=== PATIENT | female | born 1980 | race Hispanic/Latino ===

== ENCOUNTER 2019-03-12 07:46 | Emergency (ER) | payer SELFPAY ==
[2019-03-12 08:25] LABS: #Eosinphils 0.3 thou/uL (0.0-0.7); #Lymphocytes 2.5 thou/uL (1.20-3.40); #Monocytes 0.6 thou/uL (0.11-0.59); #Neutrophils 3.3 thou/uL (1.40-6.50); %Basophils 0.5 % (0.0-1.0); %Eosinophils 4.1 % (0.0-10.0); %Lymphocytes 37.6 % (21.0-51.0); %Monocytes 9.3 % (0.0-10.0); %Neutrophils 48.5 % (42.0-75.0); Hemoglobin 13.7 g/dL (12.0-16.0); Mean Corpuscular Volume 88.1 fL (78.0-98.0); Mean Platelet Volume 7.2 fL (7.4-10.4); Platelet Count 350 thou/uL (130-400); RBC Distribution Width 11.9 % (11.5-14.5); Red Blood Cell (RBC) Count 4.57 mill/uL (4.20-5.40); White Blood Cell (WBC) Count 6.7 thou/uL (4.8-10.8)
[2019-03-12] MEDS ORDERED: Morphine 4 MG/ML VIAL ONE (08:27)
[2019-03-12] MEDS ORDERED: Ondansetron PF 4 MG/2 ML Vial ONE (08:27)
[2019-03-12 08:54] LABS: ALT (SGPT) 58 U/L (8-55); AST (SGOT) 33 U/L (5-34); Albumin 4.1 g/dL (3.5-5.0); Alkaline Phosphatase 74 U/L (40-110); Anion Gap 11 mmol/L (10-20); BUN (Urea Nitrogen) 12 mg/dL (7.0-18.7); Bilirubin, Total 0.6 mg/dL (0.2-1.2); Calc. Creatinine Clearance 0 mL/min (70-130); Carbon Dioxide 23 mmol/L (22-29); Chloride 106 mmol/L (98-107); Estimated GFR-MDRD 76; Globulin 3.4 g/dL (2.4-3.5); Glucose 106 mg/dL (70-105); Lipase 29 U/L (8-78); Potassium 3.5 mmol/L (3.5-5.1); Protein, Total 7.5 g/dL (6.0-8.3); Sodium 136 mmol/L (136-145)
[2019-03-12 10:04] LABS: Bilirubin Negative (Negative); Blood, Urine Negative (Negative); Clarity Clear (Clear); Glucose, Urine (Dipstick) Normal (Negative); Leukocyte Negative Leu/uL (Negative); Nitrite Negative (Negative); Protein, Urine (Dipstick) Negative (Neg-Trace); Urobilinogen Normal mg/dL (Less than 2)
[2019-03-12 10:06] LABS: Pregnancy Test - Urine (BHCG) POSITIVE (Negative); Pregu Control Background? CLEAR/WHITE (CLR/WHITE); Pregu Control Bar Appear? YES (CONTROL BAR); Specific Gravity 1.023 (1.002-1.036)
--- NOTE | 2019-03-12 11:01 | ULT ---
Pelvic sonogram transabdominal and transvaginal imaging HISTORY: Pelvic pain. Beta hCG =507. FINDINGS: Urinary bladder is incompletely distended. Uterus has a heterogeneous echotexture and measu res up to 8.9 cm. Endometrium is thickened at 1.5 cm. Minimal free fluid within the cul-de-sac. Right ovary measures up to 1.8 cm with good color and spectral Doppler flow. Immediately superior to the right ovary is a rounded echogenic structure with central hypoechoic comp onent. Increased vascular flow at the periphery of the rounded abnormality. Minimal adjacent free fluid. Left ovary is 2.0 cm. Normal appearance with good color and spectral Doppler flow. IMPRESSION: Thickened endometrium. No intrauterine gestational sac visible. Complex right adnexal structure as detailed above. Some findings that can be seen with an ectopic pre gnancy. Please consider close continued clinical and sonographic follow-up regarding the possibility of an ectopic versus intrauterine gestation.
--- NOTE | 2019-03-14 21:19 | ULT ---
PELVIC ULTRASOUND: 03/14/19 Transabdominal and endovaginal ultrasound of pelvis performed. INDICATIONS: Follow-up from prior ultrasound. Comparison made to ultrasound exam 03/12/19. On today's exam, there is a tiny hypoechoic focus in the endometrium measuring in the 4 mm range whic h could potentially represent a tiny gestational sac. A gestational sac measurement would indicate a 5 week, 1 day gestational age. There is no evidence of yolk sac or pole. This was not noted pre viously. Both ovaries are identified and appear unremarkable today. Color Doppler and spectral analysis demons trates blood flow to both ovaries. The questioned complex area in the right adnexa noted previously is not identified today. Bowel gas o bscures this region on today's exam. IMPRESSION: 1. Question tiny gestational sac in endometrial cavity. This could represent pseudogestational s ac. Ectopic is not excluded and continued close follow-up is recommended. Recommend serial HCG levels. 2. Ovaries are unremarkable today. The questioned complex right adnexal area seen previously is not identified today. Bowel gas obscures the adnexa on today's exam. POS: OFF
== END 2019-03-12 12:21 | disposition home or self-care (01) ==
LOC: ERS 07:46
DX: O99.89 Other specified diseases and conditions complicating pregnancy, childbirth and the puerperium (principal); R10.9 Unspecified abdominal pain; O99.281 Endocrine, nutritional and metabolic diseases complicating pregnancy, first trimester; E78.5 Hyperlipidemia, unspecified; E78.00 Pure hypercholesterolemia, unspecified; O99.341 Other mental disorders complicating pregnancy, first trimester; F32.9 Major depressive disorder, single episode, unspecified
CPT/HCPCS: 76856; 80053; 81003; 81025; 83690; 84702; 85025; 96374; 96375; J2270; J2405

== ENCOUNTER 2019-03-14 16:54 | Emergency (ER) | payer SELFPAY | END 2019-03-14 23:02 | disposition home or self-care (01) | LOC: ERS 16:54 | DX: O99.89 Other specified diseases and conditions complicating pregnancy, childbirth and the puerperium (principal); R10.2 Pelvic and perineal pain; R10.814 Left lower quadrant abdominal tenderness; O99.281 Endocrine, nutritional and metabolic diseases complicating pregnancy, first trimester; E78.5 Hyperlipidemia, unspecified; E78.00 Pure hypercholesterolemia, unspecified; O99.341 Other mental disorders complicating pregnancy, first trimester; F32.9 Major depressive disorder, single episode, unspecified | CPT/HCPCS: 36415; 76856; 84702; 99284 ==

== ENCOUNTER 2019-04-01 02:22 | Emergency (ER) | payer SELFPAY ==
[2019-04-01 03:17] LABS: #Eosinphils 0.3 thou/uL (0.0-0.7); #Lymphocytes 2.7 thou/uL (1.20-3.40); #Monocytes 0.7 thou/uL (0.11-0.59); #Neutrophils 4.8 thou/uL (1.40-6.50); %Basophils 0.2 % (0.0-1.0); %Eosinophils 3.9 % (0.0-10.0); %Lymphocytes 31.4 % (21.0-51.0); %Monocytes 7.7 % (0.0-10.0); %Neutrophils 56.7 % (42.0-75.0); Hemoglobin 13.8 g/dL (12.0-16.0); Mean Corpuscular HGB CONC 34.4 g/dL (32.0-36.0); Mean Corpuscular Hemoglobin 29.8 pg (27.0-31.0); Mean Corpuscular Volume 86.6 fL (78.0-98.0); Mean Platelet Volume 7.2 fL (7.4-10.4); Platelet Count 340 thou/uL (130-400); RBC Distribution Width 11.9 % (11.5-14.5); Red Blood Cell (RBC) Count 4.63 mill/uL (4.20-5.40); White Blood Cell (WBC) Count 8.5 thou/uL (4.8-10.8)
[2019-04-01 03:26] LABS: Bilirubin Negative (Negative); Blood, Urine Negative (Negative); Clarity Clear (Clear); Glucose, Urine (Dipstick) Normal (Negative); Leukocyte Negative Leu/uL (Negative); Nitrite Negative (Negative); Protein, Urine (Dipstick) Negative (Neg-Trace); Urobilinogen Normal mg/dL (Less than 2)
--- NOTE | 2019-04-01 08:29 | ULT ---
PRELIMINARY REPORT/[facility]/AFTER HOURS PROCEDURE ULTRASOUND PELVIS TRANSVAGINAL WITH DOPPLER: FINDINGS; There is a gestational sac within the uterus. Within this there is a pole noted. Cardiac acti vity is noted within this pole measuring 158 bpm. Based on crown-rump length of the pole , this is measuring 7 weeks and 4 days in age which gives a due date of November 14, 2019 [facility] ed on this exam. There are no prior studies for comparison. A yolk sac is noted within the gestatio nal sac. There is no evidence of subchorionic hemorrhage at this time. The ovaries show no ultrasou nd abnormality. IMPRESSION: 1. Single live intrauterine measuring 7 weeks and 4 days by crown-rump length which gives a due date of November 14, 2019 based on this exam. 2. cardiac activity noted with heart rate of 158 bpm. 3. The ovaries show no ultrasound abnormality. ELECTRONICALLY SIGNED BY: Reinaldo Parker MD Apr 01, 2019 7:59:44 AM MICROBIOLOGY ANALYST This report is intended for review by the ordering physician only, in accordance of law. If you recei ve this report in error, please call [facility] at [phone]. FINAL REPORT TRANSVAGINAL PELVIC ULTRASOUND WITH ROBLES-SCALE AND COLOR-FLOW AND SPECTRAL DOPPLER IMAGING: I agree with the preliminary report given by Dr. Reinalod Parker of [facility]. CODE QA POS: [facility]
== END 2019-04-01 05:02 | disposition home or self-care (01) ==
LOC: ERS 02:22
DX: O99.89 Other specified diseases and conditions complicating pregnancy, childbirth and the puerperium (principal); R10.30 Lower abdominal pain, unspecified; E78.5 Hyperlipidemia, unspecified; E78.00 Pure hypercholesterolemia, unspecified; Z3A.01 Less than 8 weeks gestation of pregnancy
CPT/HCPCS: 76856; 81003; 84702; 85025

== ENCOUNTER 2019-04-15 05:36 | Emergency (ER) | payer SELFPAY ==
[2019-04-15 06:13] LABS: Bilirubin Negative (Negative); Blood, Urine Negative (Negative); Clarity Clear (Clear); Glucose, Urine (Dipstick) Normal (Negative); Leukocyte Negative Leu/uL (Negative); Nitrite Negative (Negative); Protein, Urine (Dipstick) Negative (Neg-Trace); Urobilinogen Normal mg/dL (Less than 2)
[2019-04-15 06:13] LABS: #Basophils 0.1 thou/uL (0.0-0.2); #Eosinphils 0.3 thou/uL (0.0-0.7); #Lymphocytes 2.3 thou/uL (1.20-3.40); #Monocytes 0.6 thou/uL (0.11-0.59); #Neutrophils 5.3 thou/uL (1.40-6.50); %Basophils 0.6 % (0.0-1.0); %Eosinophils 3.3 % (0.0-10.0); %Monocytes 7.2 % (0.0-10.0); %Neutrophils 61.9 % (42.0-75.0); Hemoglobin 13.5 g/dL (12.0-16.0); Mean Corpuscular HGB CONC 34.4 g/dL (32.0-36.0); Mean Corpuscular Hemoglobin 30.3 pg (27.0-31.0); Mean Corpuscular Volume 88.3 fL (78.0-98.0); Mean Platelet Volume 7.2 fL (7.4-10.4); Platelet Count 303 thou/uL (130-400); Red Blood Cell (RBC) Count 4.46 mill/uL (4.20-5.40); White Blood Cell (WBC) Count 8.6 thou/uL (4.8-10.8)
[2019-04-15 06:42] LABS: ALT (SGPT) 36 U/L (8-55); AST (SGOT) 21 U/L (5-34); Albumin 3.8 g/dL (3.5-5.0); Alkaline Phosphatase 72 U/L (40-110); Anion Gap 12 mmol/L (10-20); BUN (Urea Nitrogen) 13 mg/dL (7.0-18.7); Bilirubin, Total 0.4 mg/dL (0.2-1.2); Calc. Creatinine Clearance 0 mL/min (70-130); Carbon Dioxide 22 mmol/L (22-29); Chloride 105 mmol/L (98-107); Estimated GFR-MDRD 89; Globulin 3.2 g/dL (2.4-3.5); Glucose 102 mg/dL (70-105); Lipase 27 U/L (8-78); Magnesium 1.9 mg/dL (1.6-2.6); Potassium 3.6 mmol/L (3.5-5.1); Sodium 135 mmol/L (136-145)
--- NOTE | 2019-04-15 09:01 | ULT ---
EXAM: US Pelvic Transvag PROVIDED CLINICAL HISTORY: Abdominal pain COMPARISON: 04/01/2019 FINDINGS: Single live intrauterine gestation is documented, 9 weeks 5 days by crown-rump length. heart ra te of 180 bpm is documented. There is a small amount of perigestational hemorrhage. Right and left ovaries appear sonographically normal. Color Doppler and spectral analysis of the ovar amparo waveforms demonstrates normal flow. There is no evidence for free pelvic fluid. IMPRESSION: Single live intrauterine gestation as above. Small amount of perigestational hemorrhage.
[2019-04-17 00:15] LABS: Chlamydia by PCR Not Detected (NotDetected); GC by PCR Not Detected (NotDetected)
== END 2019-04-15 07:41 | disposition home or self-care (01) ==
LOC: ERS 05:36
DX: O20.8 Other hemorrhage in early pregnancy (principal); O99.281 Endocrine, nutritional and metabolic diseases complicating pregnancy, first trimester; E78.5 Hyperlipidemia, unspecified; E78.00 Pure hypercholesterolemia, unspecified; Z3A.01 Less than 8 weeks gestation of pregnancy
CPT/HCPCS: 76856; 80053; 81003; 83605; 83690; 83735; 84702; 85025; 87086; 87480; 87491; 87510; 87591; 87660; 96360

== ENCOUNTER 2019-06-07 07:32 | Emergency (ER) | payer SELFPAY ==
[2019-06-07 08:34] LABS: #Eosinphils 0.4 thou/uL (0.0-0.7); #Lymphocytes 2.3 thou/uL (1.20-3.40); #Monocytes 0.8 thou/uL (0.11-0.59); %Basophils 0.3 % (0.0-1.0); %Eosinophils 4.7 % (0.0-10.0); %Lymphocytes 27.2 % (21.0-51.0); %Monocytes 9.2 % (0.0-10.0); %Neutrophils 58.7 % (42.0-75.0); Mean Corpuscular HGB CONC 34.1 g/dL (32.0-36.0); Mean Corpuscular Hemoglobin 29.8 pg (27.0-31.0); Mean Corpuscular Volume 87.2 fL (78.0-98.0); Mean Platelet Volume 7.9 fL (7.4-10.4); Platelet Count 306 thou/uL (130-400); RBC Distribution Width 12.6 % (11.5-14.5); Red Blood Cell (RBC) Count 4.01 mill/uL (4.20-5.40); White Blood Cell (WBC) Count 8.5 thou/uL (4.8-10.8)
[2019-06-07 08:45] LABS: ALT (SGPT) 27 U/L (8-55); AST (SGOT) 23 U/L (5-34); Albumin 3.3 g/dL (3.5-5.0); Alkaline Phosphatase 78 U/L (40-110); Anion Gap 12 mmol/L (10-20); BUN (Urea Nitrogen) 9 mg/dL (7.0-18.7); Bilirubin, Total 0.2 mg/dL (0.2-1.2); Calc. Creatinine Clearance 0 mL/min (70-130); Carbon Dioxide 22 mmol/L (22-29); Chloride 107 mmol/L (98-107); Estimated GFR-MDRD Greater than 90; Globulin 2.7 g/dL (2.4-3.5); Glucose 108 mg/dL (70-105); Potassium 3.9 mmol/L (3.5-5.1); Sodium 137 mmol/L (136-145)
[2019-06-07 09:23] LABS: Bacteria/HPF 2+ HPF (None Seen); Bilirubin Negative (Negative); Blood, Urine Negative (Negative); Clarity Clear (Clear); Glucose, Urine (Dipstick) Normal (Negative); Leukocyte 25 Leu/uL (Negative); Nitrite Negative (Negative); Protein, Urine (Dipstick) Negative (Neg-Trace); RBC/HPF 0-3 HPF (0-3); Urobilinogen Normal mg/dL (Less than 2); WBC/HPF 0-3 HPF (0-3)
--- NOTE | 2019-06-07 09:25 | ULT ---
ULTRASOUND OBSTETRICAL COMPLETE: DATE: 06/07/2019 HISTORY: 38-year-old female with low abdominal pain FINDINGS: number: espinal lie: Transverse Maternal cervix: 3.5 cm. Closed. Placenta: Anterior. No placenta previa. Amniotic fluid volume: Subjectively normal heart rate: 150 bpm anatomy not evaluated in detail biometry: Biparietal diameter (BPD): 3.7 cm 17 w 2 d Head circumference (HC): 14.1 cm 17 w 3 d Abdominal circumference (AC): 12.8 cm 18 w 3 d Femur length (FL): 2.5 cm 17 w 4 d Average ultrasound age (AUA): 17 w 5 d Estimated date of delivery (KINGA): 11/10/2019 Estimated weight (EFW): 216 g +/- 32 g IMPRESSION: 1) Live 2nd trimester intrauterine gestation. 2) Estimated gestational age of 17 weeks, 5 days 3) transverse lie. 4) no evidence of complications
--- NOTE | 2019-06-09 14:33 | EKG ---
Test Reason : Blood Pressure : / mmHG Vent. Rate : 065 BPM Atrial Rate : 065 BPM P-R Int : 156 ms QRS Dur : 072 ms QT Int : 376 ms P-R-T Axes : 045 069 033 degrees QTc Int : 391 ms Normal sinus rhythm Normal ECG Confirmed by LEONELA CAIN D.O. ([id number]), editor book RADU MEZA ([id number]) on 06/09/2019 2:32:36 PM Referred By: Confirmed By:LEONELA CAIN D.O.
== END 2019-06-07 10:20 | disposition home or self-care (01) ==
LOC: ERS 07:32
DX: O23.12 Infections of bladder in pregnancy, second trimester (principal); O99.89 Other specified diseases and conditions complicating pregnancy, childbirth and the puerperium; R10.9 Unspecified abdominal pain; O99.282 Endocrine, nutritional and metabolic diseases complicating pregnancy, second trimester; E78.5 Hyperlipidemia, unspecified; E78.00 Pure hypercholesterolemia, unspecified; Z3A.16 16 weeks gestation of pregnancy
CPT/HCPCS: 36415; 76815; 80053; 81003; 81015; 83605; 85025; 86850; 86900; 86901; 93005; 96360

== ENCOUNTER 2019-10-23 02:14 | Inpatient (IN) | payer MEDICAID, OTHER ==
[2019-10-23] MEDS ORDERED: Acetaminophen 500 MG TAB PO PRN (04:28)
[2019-10-23] MEDS ORDERED: Promethazine HCl 25 MG/ML VIAL IM PRN ×2 (04:28→07:18)
[2019-10-23] MEDS ORDERED: Lactated Ringer's 1,000 ML IV SCH (04:28)
[2019-10-23] MEDS ORDERED: hydrALAZINE 20 MG/ML VIAL SLOW IVP PRN ×3 (04:28→08:45)
[2019-10-23] MEDS ORDERED: Ondansetron PF 4 MG/2 ML Vial IVP PRN ×3 (04:28→08:45)
[2019-10-23] MEDS ORDERED: Bicitra 30 ML UDCUP PO SCH (04:30)
[2019-10-23] MEDS ORDERED: CEFAZOLIN 2 GM in Premix Bag 1 BAG IVPB SCH (04:30)
[2019-10-23] MEDS ORDERED: Azithromycin 500 MG in Sodium Chloride 0.9% 250 ML 250 ML IVPB SCH (04:30)
[2019-10-23 04:45] VITALS: BMI 31.8
[2019-10-23 04:47] LABS: Hemoglobin 11.7 g/dL (12.0-16.0)
[2019-10-23 04:54] LABS: ALT (SGPT) 16 U/L (8-55); AST (SGOT) 19 U/L (5-34); Albumin 3.2 g/dL (3.5-5.0); Alkaline Phosphatase 231 U/L (40-110); Anion Gap 15 mmol/L (10-20); BUN (Urea Nitrogen) 19 mg/dL (7.0-18.7); Bilirubin, Total Less than 0.2 mg/dL (0.2-1.2); Calc. Creatinine Clearance 115 mL/min (70-130); Calcium 9.1 mg/dL (7.8-10.44); Carbon Dioxide 18 mmol/L (22-29); Chloride 108 mmol/L (98-107); Estimated GFR-MDRD 82; Glucose 106 mg/dL (70-105); Potassium 4.2 mmol/L (3.5-5.1); Protein, Total 6.2 g/dL (6.0-8.3); Sodium 137 mmol/L (136-145)
[2019-10-23 05:01] LABS: Platelet Count 222 thou/uL (130-400)
[2019-10-23 05:13] LABS: HBSAg Index 0.15 S/CO (0-0.99); HIV (1/2) Antibody/Antigen Non-Reactive (NonReactive); HIV 1/2 INDEX 0.37 S/CO (<1.00); Hep B Surf Ag Non-Reactive S/CO (NonReactive); Syphilis Antibody Nonreactive (Nonreactive); Syphilis Antibody Index 0.05 S/CO (<1.00 Non-Reactive)
[2019-10-23] MEDS ORDERED: MORPHINE 5 MG/10 ML PF VIAL ONE (05:15)
[2019-10-23] MEDS ORDERED: PHENYLEPHRINE-NS 100 MCG/ML 10 ML SYRINGE ONE ×2 (05:15→06:08)
[2019-10-23] MEDS ORDERED: Oxytocin 10 UNITS/ML VIAL ONE ×2 (05:15→06:18)
[2019-10-23 06:17] LABS: Actual Bicarbonate (HCO3v) 24 mEq/L (22-28); Base Excess -4.2 mEq/L (-2.0 to +3.0); pH (Cord, venous) 7.26 (7.32-7.43)
[2019-10-23 06:20] LABS: Actual Bicarbonate (HCO3a) 23.1 mEq/L (22-28); Base Excess (BEa) -6.3 mEq/L (-2.0 to +3.0)
[2019-10-23] MEDS ORDERED: diphenhydrAMINE 50 MG/ML VIAL IVP PRN (07:18)
[2019-10-23] MEDS ORDERED: Naloxone HCl 0.4 mg/ml Vial IVP PRN ×2 (07:18)
[2019-10-23] MEDS ORDERED: Ondansetron HCl/PF 4 MG/2 ML Vial IVP PRN (07:18)
[2019-10-23] MEDS ORDERED: HYDROmorphone 2 MG/ML VIAL SLOW IVP PRN (07:18)
[2019-10-23] MEDS ORDERED: Naloxone HCl 0.4 mg/ml Vial IV PRN (07:18)
[2019-10-23] MEDS ORDERED: Promethazine HCl 25 MG SUPP PR PRN (07:18)
[2019-10-23] MEDS ORDERED: Meperidine HCl/PF 25 MG/ML VIAL SLOW IVP PRN (07:18)
[2019-10-23] MEDS ORDERED: L&D-Morphine 4 MG/ML VIAL SLOW IVP PRN (07:18)
[2019-10-23] MEDS ORDERED: Communication Order-Pharmacy FS SCH (07:30)
[2019-10-23] MEDS ORDERED: Ketorolac Tromethamine 30 MG/ML VIAL IVP SCH (07:30)
[2019-10-23] MEDS ORDERED: NS / Oxytocin 40 units/1000ml 1,000 ML ONE (07:40)
[2019-10-23] MEDS ORDERED: Ketorolac Tromethamine 30 MG/ML VIAL ONE (07:43)
[2019-10-23] MEDS ORDERED: Milk Of Magnesia 30 ML UDCUP PO PRN (08:45)
[2019-10-23] MEDS ORDERED: NS / Oxytocin 40 units/1000ml 1,000 ML IV SCH (08:45)
[2019-10-23] MEDS ORDERED: Lanolin Ointment 7 GM TUBE TOP PRN (08:45)
[2019-10-23] MEDS ORDERED: Adacel (T-DAP) 0.5 ML SYRINGE IM ONE (08:45)
[2019-10-23] MEDS: Docusate 100 MG CAP PO SCH ×2 (10:05→21:36)
[2019-10-23] MEDS: Prenatal Vitamin 1 TAB PO SCH (10:06)
[2019-10-23] MEDS: Polyethylene Glycol 3350 17 GM Packet PO SCH (10:06)
[2019-10-23 12:28] LABS: SARS-CoV-2 MS2 Positive; SARS-CoV-2 N Gene Negative; SARS-CoV-2 S Gene Negative; SARS-CoV-2 by NAA Not Detected (NotDetected); SARS-CoV-2 orf1ab Negative
--- NOTE | 2019-10-23 12:40 | PDOC.PP ---
Post Progress Note Post Day #: 0 Subjective: Pt resting comfortably. Feels tired and having some dizziness. No pain at this time. Has tried once. PO intake tolerated: yes Ambulation: no Vital Signs (12 hours) Temp Pulse Resp BP Pulse Ox 10/23/19 11:15 97.6 F 62 18 125/60 96 10/23/19 10:09 68 18 98/54 L 97 10/23/19 09:05 98.1 F 65 18 123/61 97 Weight Weight 73.936 kg - Physical Examination General: NAD Cardiovascular: RRR Respiratory: clear to auscultation bilaterally, non-labored breathing Abdominal: appropriately TTP Deviation from normal: bandages located across lower abdomen, no erythema, edema or exudate noted Deviation from normal: was sleeping off and on throughout exam Result Diagrams: 10/23/19 03:30 10/23/19 03:30 Additional Labs: Post Labs Blood Type O POSITIVE 10/23/19 03:30 Hep Bs Antigen Non-Reactive S/CO (NonReactive) 10/23/19 03:30 - Assessment/Plan sIUP, delivered. POD#0 -meeting milestones -will order CBC due to sx of dizziness and weakness - -urine in [place] was clear, no blood
[2019-10-23 13:26] LABS: Platelet Count 183 thou/uL (130-400)
[2019-10-23] MEDS: Ketorolac Tromethamine 30 MG/ML VIAL IVP PRN ×2 (14:25→23:32)
--- NOTE | 2019-10-23 16:30 | PDOC.PP ---
Post Progress Note Post Day #: 0 Subjective: Called by nurse to evaluate pt. She is complaining of overall weakness, dizziness, and headache. She also c/o a heaviness in her chest, located on the left side, constant, no radiation, no modifiers. She states these symptoms have been present since the placement of the anesthesia before the . PO intake tolerated: yes Ambulation: no Vital Signs (12 hours) Temp Pulse Resp BP Pulse Ox 10/23/19 14:30 97.6 F 66 18 111/55 L 95 10/23/19 11:15 97.6 F 62 18 125/60 96 10/23/19 10:09 68 18 98/54 L 97 10/23/19 09:05 98.1 F 65 18 123/61 97 Weight Weight 73.936 kg - Physical Examination Cardiovascular: RRR Deviation from normal: minimally TTP over lower quadrants, bandages in place, no bleeding Deviation from normal: edema of hands and feet Deviation from normal: muscle strength 4/5 UE and LE Psychiatric: A&Ox3 Result Diagrams: 10/23/19 13:03 10/23/19 03:30 Additional Labs: Post Labs Blood Type O POSITIVE 10/23/19 03:30 Hep Bs Antigen Non-Reactive S/CO (NonReactive) 10/23/19 03:30 - Assessment/Plan sIUP, delivered. POD#0 -c/o CP, VASQUEZ, dizziness, fatigue since placement of spinal anestheis -H/H 01/24 -urine output ~500ml since surgery, no blood -ekg ordered -consulted anesthesia who agreed to evaluate her
--- NOTE | 2019-10-23 16:53 | OP ---
DATE OF PROCEDURE: 10/23/2019 RESIDENT SURGEONS: Judith Smith MD, PGY-3. Cici Thakkar MD, PGY-3. Mack Sanchez DO, PGY-2. ATTENDING SURGEON: Roro Villa MD PROCEDURE PERFORMED: Primary low-transverse section. PREOPERATIVE DIAGNOSES: 1. Term intrauterine . 2. A2 gestational diabetes. 3. AMA. 4. History of ovarian cystectomy. 5. History of abdominal uterine myomectomy. 6. Hyperlipidemia. 7. 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 8. Adjustment disorder. 9. GBS unknown. POSTOPERATIVE DIAGNOSES: 1. Term intrauterine , delivered. 2. A2 gestational diabetes. 3. AMA. 4. History of ovarian cystectomy. 5. History of abdominal uterine myomectomy. 6. Hyperlipidemia. 7. 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 8. Adjustment disorder. 9. GBS unknown. ANESTHESIA: Spinal. INDICATIONS: The patient is a 38-year-old G2, P1-0-0-1 female at 37.0 weeks' gestation, who presented in labor and primary low-transverse section was performed for history of abdominal uterine myomectomy and the patient's preference for section. PROCEDURE IN DETAIL: After risks, benefits, and alternatives were explained to the patient, she gave informed consent. Preoperative antibiotics included cefazolin 2 g IV and azithromycin 500 mg IV. The patient was taken to the operating and spinal anesthesia was initiated. She was placed in the supine position with a left tilt and prepped and draped in the usual sterile fashion. A Pfannenstiel incision was made with a scalpel and carried down to the level of the fascia, which was sharply nicked. Fascial cut was extended bilaterally with Mckinney scissors. Inferior and superior edges of the cut fascial edges were elevated with Tor clamps and underlying rectus muscles were bluntly and sharply dissected free. The recti were divided distally and retracted manually. The peritoneum was entered bluntly and retracted manually. Chris O was placed. Bladder flap was attempted with Metzenbaum scissors. A low transverse score was made with scalpel and the uterus was entered in the midline with a scalpel. Clear fluid was seen. The hysterotomy was extended manually. The was noted to be vertex and asynclitic with brow presentation, it was delivered by fundal pressure. Mouth and nares were bulb suctioned. Cord was clamped and cut and grossly normal male was handed to awaiting nurse. Cord blood and cord gas were obtained. The placenta was expectantly extracted, found to be intact with 3-vessel cord and discarded. The endometrium was curetted with a dry lap. The uterus was closed using a running locking 1 Monocryl. Following this, hemostasis was noted. There were some spots of oozing that were addressed with Arixtra powder. The omentum was noted to have several bleeding areas that were hemostatic after Bovie and Arixtra powder applied. The uterus was again inspected and hysterotomy was again noted to be hemostatic. The bladder was inspected and a small area of bladder serosa was closed using 4- 0 Monocryl suture. The fascia was closed with running nonlocking 0 PDS suture. The subcu tissue was irrigated and bleeders were addressed with Bovie cauterization. The subcu tissue was closed with 2-0 plain gut. The skin was approximated using 4-0 Monocryl and dressing was placed. All counts were correct. The patient tolerated the procedure well and was taken to the recovery room in stable condition. QUANTITATIVE BLOOD LOSS: 700. COMPLICATIONS: None. SPECIMENS: Cord blood and gas sent to lab. FINDINGS: 1. Grossly normal male with Apgars of 8 and 9. 2. Normal placenta with 3-vessel cord, discarded. DRAINS: Nazario to gravity, draining clear fluid. Attending Note: I was present and participated in the above documented procedure. I agree with the resident documentation above. Patient presented in active labor with SROM. Previous history of uterine myomectomy. MOD options discussed along with R/B of both. Patient decided to proceed with PLTCS due to risk of TOLAC. Patient previously had vertical skin incision from prior abdominal/pelvis surgeries, however, very wide, hypertrophic, and irregular incisional scar. Discussed entry options and concerns with resection of current abdominal scar. Patient agreed with entry via Pfannenstiel incision. Once fascial incision was made, mild adhesions noted. Upon entry into the abdominal cavity, omental adhesions noted. Care was taken during entry, however several areas of bleed was noted along the omentum. Chris O retractor was used to help create some pressure for hemo- stasis. Moderate bladder serosal adhesions noted. Attempted bladder flap but unable to complete due to dense adhesions. Low transverse uterine incision performed. Superior end of lower uterine segment entered. Difficult deliver of head due to deep pelvic positioning and brow presentation. Once delivered. Infant active and crying. Passed off to Roge team. No uterine extensions. Uncomplicated, single layer, full thickness of hysterotomy. Hemostatic with Arixtra. During abdominal inspection, noted small areas of continued omental bleeding. Bovie cautery used along with Arixtra. Hemostatic at closure. Muscle bellies examined. Slow oozing noted on left. Hemostasis with Arixtra. Otherwise uncomplicated closer. Manda Job ID: [id number] MTDD
[2019-10-23] MEDS: Ferrous Sulfate 325 MG TAB PO SCH (18:26)
[2019-10-23] MEDS: Simethicone Chewable 80 MG TAB PO PRN (21:36)
[2019-10-23 22:25] LABS: Creatinine, Urine 124.84 mg/dL (47-110)
[2019-10-24] MEDS: Simethicone Chewable 80 MG TAB PO PRN ×2 (04:21→20:32)
[2019-10-24 05:22] LABS: Hemoglobin 8.8 g/dL (12.0-16.0); Mean Corpuscular HGB CONC 33.5 g/dL (32.0-36.0); Mean Corpuscular Hemoglobin 29.9 pg (27.0-31.0); Mean Corpuscular Volume 89.4 fL (78.0-98.0); Mean Platelet Volume 9.4 fL (7.4-10.4); Platelet Count 169 thou/uL (130-400); RBC Distribution Width 15.5 % (11.5-14.5); Red Blood Cell (RBC) Count 2.94 mill/uL (4.20-5.40); White Blood Cell (WBC) Count 10.1 thou/uL (4.8-10.8)
[2019-10-24] MEDS: Ibuprofen 800 MG TAB PO SCH ×3 (05:54→20:31)
--- NOTE | 2019-10-24 06:25 | PDOC.PP ---
Post Progress Note Post Day #: 1 Subjective: Feeling better than she was yesterday. Unsure if anesthesia came by to see her. She does feel dizzy when she stands up. Reports she was nauseous yesterday and only ate jello. More of an appetite today. Reports passing gas. Only ambulating to toilet. Reports bilateral lower arm numbness. States her bleeding is more than a period. Vital Signs (12 hours) Temp Pulse Resp BP Pulse Ox 10/24/19 04:20 98.3 F 78 16 113/58 L 10/23/19 23:00 99.0 F 78 16 117/59 L 10/23/19 19:30 99.0 F 72 16 122/58 L 97 Weight Weight 73.936 kg - Physical Examination General: NAD Cardiovascular: no m/r/g, RRR Respiratory: clear to auscultation bilaterally Abdominal: + bowel sounds, appropriately TTP Skin: CS incision dry & intact Neurological: no gross focal deficits Psychiatric: A&Ox3, normal affect Result Diagrams: 10/24/19 05:02 10/23/19 03:30 Additional Labs: Post Labs Blood Type O POSITIVE 10/23/19 03:30 Hep Bs Antigen Non-Reactive S/CO (NonReactive) 10/23/19 03:30 - Assessment/Plan sIUP, delivered rLTCS - Symptoms of chest pressure have resolved. EKG reviewed and NSR. Anesthesia to eval for b/l UE numbness. - Continue routine PP care - Encouraged PPH - QBL: 1017 - Hgb: 11.7 -> 8.8 Addendum - Attending - Attending Attestation Date/Time: 10/25/19 [id number] I personally evaluated the patient and discussed the management with Dr. Smith on 10/23 I agree with the History, Examination, Assessment and Plan documented above with any addition or exceptions noted below - Patient without complaints. Feeling better. Tolerating po. Voiding well. Afebrile VSS. A/P: 1) POD#1 s/p 1* C/S - continue current care. Encourage ambulation.
[2019-10-24] MEDS: Docusate 100 MG CAP PO SCH ×2 (08:38→20:30)
[2019-10-24] MEDS: Prenatal Vitamin 1 TAB PO SCH (08:38)
[2019-10-24] MEDS: Ferrous Sulfate 325 MG TAB PO SCH ×2 (08:38→17:38)
[2019-10-24] MEDS: Polyethylene Glycol 3350 17 GM Packet PO SCH (08:39)
[2019-10-24] MEDS: Acetaminophen 325 MG TAB PO PRN ×2 (11:36→20:31)
[2019-10-24] MEDS ORDERED: Ibuprofen 800 MG TAB PO SCH (14:00)
[2019-10-24] MEDS ORDERED: Dextrose 50% Abboject 50 ML SYRINGE SLOW IVP PRN (19:01)
[2019-10-24] MEDS ORDERED: HumaLOG 300 UNITS/3 ML VIAL SC PRN ×2 (19:01)
[2019-10-24] MEDS ORDERED: Dextrose 5% in Water 1,000 ML IV PRN (19:01)
[2019-10-25] MEDS: Ibuprofen 800 MG TAB PO SCH ×3 (03:51→21:13)
[2019-10-25] MEDS: Simethicone Chewable 80 MG TAB PO PRN (03:51)
[2019-10-25] MEDS: Acetaminophen 325 MG TAB PO PRN (03:52)
--- NOTE | 2019-10-25 06:32 | PDOC.PP ---
Post Progress Note Post Day #: 2 Subjective: Pain well controlled. Tolerating PO, ambulating, had BM yesterday. Having difficulty with , feels that her milk is not coming in. Lochia less than a period. PO intake tolerated: yes Flatus: yes Ambulation: yes Vital Signs (12 hours) Temp Pulse Resp BP Pulse Ox 10/25/19 03:48 98.2 F 65 18 122/65 10/24/19 19:41 99.1 F 87 16 121/58 L 96 Weight Weight 73.936 kg - Physical Examination General: NAD Cardiovascular: no m/r/g, RRR Respiratory: clear to auscultation bilaterally, non-labored breathing Abdominal: + bowel sounds Skin: CS incision dry & intact Neurological: no gross focal deficits Psychiatric: A&Ox3, normal affect Result Diagrams: 10/24/19 05:02 10/23/19 03:30 Additional Labs: Post Labs Blood Type O POSITIVE 10/23/19 03:30 Hep Bs Antigen Non-Reactive S/CO (NonReactive) 10/23/19 03:30 - Assessment/Plan sIUP, delivered rLTCS - POD#2 - Symptoms of chest pressure have resolved. EKG reviewed and NSR. Anesthesia to eval for b/l UE numbness. - Continue routine PP care - Encouraged/Educated on - Likely d/c home today or tomorrow pending babys bilirubin PPH - QBL: 1017 - Hgb: 11.7 -> 8.8 Addendum - Attending - Attending Attestation Date/Time: 10/25/19 [id number] I personally evaluated the patient and discussed the management with Dr. Smith I agree with the History, Examination, Assessment and Plan documented above with any addition or exceptions noted below - Patient denies any complaints. Ambulating/voiding. Afebrile VSS. A/P: 1) POD#2 s/p 1* C/S - doing well. Continue current care. Anticipate d/c in AM
[2019-10-25] MEDS: Polyethylene Glycol 3350 17 GM Packet PO SCH (09:00)
[2019-10-25] MEDS: Prenatal Vitamin 1 TAB PO SCH (09:00)
[2019-10-25] MEDS: Ferrous Sulfate 325 MG TAB PO SCH ×2 (09:00→18:11)
[2019-10-25] MEDS: Docusate 100 MG CAP PO SCH ×2 (09:00→21:13)
[2019-10-25] MEDS: HYDROcodone/Acetaminophen 5/325 mg Tablet PO PRN ×2 (11:20→18:12)
[2019-10-26 00:10] VITALS: TEMP 98.1
[2019-10-26] MEDS: HYDROcodone/Acetaminophen 5/325 mg Tablet PO PRN (01:02)
[2019-10-26] MEDS: Simethicone Chewable 80 MG TAB PO PRN (01:03)
[2019-10-26] MEDS: Ibuprofen 800 MG TAB PO SCH (05:55)
--- NOTE | 2019-10-26 06:32 | PDOC.PP ---
Addendum entered and electronically signed by Judith Smith MD 10/26/19 11:00 : At 2wk follow up be sure to inspect left lateral breast. Likely fibroadenoma. Mobile 1-2cm mass. Original Note: Post Progress Note Post Day #: 3 Subjective: Pain controlled with medications. Ambulating, tolerating PO, passing gas and having BMs. Would like to go home today. PO intake tolerated: yes Flatus: yes Ambulation: yes Vital Signs (12 hours) Temp Pulse Resp BP Pulse Ox 10/25/19 21:11 98.1 F 76 18 139/63 98 10/25/19 18:25 97.9 F 60 20 133/67 Weight Weight 73.936 kg - Physical Examination General: NAD Cardiovascular: no m/r/g, RRR Respiratory: clear to auscultation bilaterally, non-labored breathing Abdominal: + bowel sounds, appropriately TTP Neurological: no gross focal deficits Psychiatric: A&Ox3, normal affect Result Diagrams: 10/24/19 05:02 10/23/19 03:30 Additional Labs: Post Labs Blood Type O POSITIVE 10/23/19 03:30 Hep Bs Antigen Non-Reactive S/CO (NonReactive) 10/23/19 03:30 - Assessment/Plan sIUP, delivered rLTCS - POD#3 - Continue routine PP care - GBS still pending - Discharge home later today PPH - QBL: 1017 - Hgb: 11.7 -> 8.8 A2GDM - Continue to monitor glucose at home - F/u 2 weeks at [facility]. - 2hr GTT at 6wks Addendum - Attending - Attending Attestation Date/Time: 10/26/192007 I personally evaluated the patient and discussed the management with Dr. Smith I agree with the History, Examination, Assessment and Plan documented above with any addition or exceptions noted below- Patient without complaints. Pain well controlled. Afebrile VSS A/P: 1) POD #3 s/p csection - d/c home today and follow-up at [facility] in 2 weeks
[2019-10-26 08:23] VITALS: BP 112/65
[2019-10-26] MEDS: Prenatal Vitamin 1 TAB PO SCH (08:49)
[2019-10-26] MEDS: Ferrous Sulfate 325 MG TAB PO SCH (08:49)
[2019-10-26] MEDS: Polyethylene Glycol 3350 17 GM Packet PO SCH (08:49)
[2019-10-26] MEDS: Docusate 100 MG CAP PO SCH (08:49)
== END 2019-10-26 13:23 | disposition home or self-care (01) | DRG 787 ==
LOC: L&D/OP 02:14 → L&D 04:35 → 3SW 09:06
PROVIDERS: ADMIT Obstetrics & Gynecology; ATTEND Obstetrics & Gynecology
PROC: 10D00Z1 Extraction of Products of Conception, Low, Open Approach (ICD-10-PCS; principal; 2019-10-23)
DX: O24.429 Gestational diabetes mellitus in childbirth, unspecified control (principal); O98.32 Other infections with a predominantly sexual mode of transmission complicating childbirth; O72.1 Other immediate postpartum hemorrhage; Z11.59 Encounter for screening for other viral diseases; A63.0 Anogenital (venereal) warts; O99.284 Endocrine, nutritional and metabolic diseases complicating childbirth; E78.5 Hyperlipidemia, unspecified; O99.344 Other mental disorders complicating childbirth; F43.20 Adjustment disorder, unspecified; D24.2 Benign neoplasm of left breast; O99.62 Diseases of the digestive system complicating childbirth; K66.0 Peritoneal adhesions (postprocedural) (postinfection); N32.89 Other specified disorders of bladder; O99.89 Other specified diseases and conditions complicating pregnancy, childbirth and the puerperium; O32.3XX0 Maternal care for face, brow and chin presentation, not applicable or unspecified; Z3A.37 37 weeks gestation of pregnancy; Z37.0 Single live birth; Z98.890 Other specified postprocedural states
CPT/HCPCS: 36415; 36416; 51702; 80053; 82570; 82805; 84156; 85014; 85018; 85027; 86780; 86850; 86900; 86901; 87077; 87081; 87340; 87389; 87635; 93005; 93010; 99285; J1885; J2274; J2405; J2590; U0003

== ENCOUNTER 2020-12-02 14:39 | Emergency (ER) | payer MEDICAID ==
[2020-12-03 00:52] LABS: SARS-CoV-2 PCR by NAA DETECTED (NotDetected)
== END 2020-12-02 16:09 | disposition home or self-care (01) ==
LOC: ERS 14:39
DX: U07.1 COVID-19 (principal); E78.5 Hyperlipidemia, unspecified; E78.00 Pure hypercholesterolemia, unspecified
CPT/HCPCS: 99283; U0003; U0005

== ENCOUNTER 2022-09-06 15:11 | Emergency (ER) | payer OTHER, SELFPAY ==
[2022-09-06] MEDS ORDERED: HYDROcodone/Acetaminophen 5/325 mg Tablet ONE (22:18)
[2022-09-06 23:06] LABS: #Basophils 0.1 thou/uL (0.0-0.2); #Eosinphils 0.2 thou/uL (0.0-0.7); #Monocytes 0.5 thou/uL (0.11-0.59); #Neutrophils 4.1 thou/uL (1.40-6.50); %Basophils 0.7 % (0.0-1.0); %Eosinophils 3.3 % (0.0-10.0); %Lymphocytes 31.4 % (21.0-51.0); %Monocytes 7.2 % (0.0-10.0); %Neutrophils 57.1 % (42.0-75.0); Hemoglobin 13.7 g/dL (12.0-16.0); Mean Corpuscular HGB CONC 33.3 g/dL (32.0-36.0); Mean Corpuscular Hemoglobin 29.7 pg (27.0-31.0); Mean Corpuscular Volume 89.2 fl (78.0-98.0); Mean Platelet Volume 9.9 fL (7.4-10.4); Platelet Count 294 10x3/uL (130-400); RBC Distribution Width 12.8 % (11.5-14.5); Red Blood Cell (RBC) Count 4.61 mill/uL (4.20-5.40); White Blood Cell (WBC) Count 7.2 10x3/uL (4.8-10.8)
[2022-09-06 23:14] LABS: BHCG - Serum Negative (NEGATIVE); Pregs Control Background? CLEAR/WHITE (CLR/WHITE); Pregs Control Bar Appear? YES (CONTROL BAR)
[2022-09-06 23:30] LABS: ALT (SGPT) 31 U/L (8-55); AST (SGOT) 20 U/L (5-34); Alkaline Phosphatase 73 U/L (40-110); Anion Gap 14 mmol/L (10-20); BUN (Urea Nitrogen) 14 mg/dL (7.0-18.7); Bilirubin, Total 0.3 mg/dL (0.2-1.2); Calc. Creatinine Clearance 0 mL/min (70-130); Carbon Dioxide 21 mmol/L (22-29); Chloride 107 mmol/L (98-107); Estimated GFR 96; Globulin 3.2 g/dL (2.4-3.5); Glucose 109 mg/dL (70-105); Potassium 3.9 mmol/L (3.5-5.1); Protein, Total 7.2 g/dL (6.0-8.3); Sodium 138 mmol/L (136-145)
[2022-09-07 00:34] LABS: Bacteria/HPF None Seen HPF (None Seen); Bilirubin Negative (Negative); Blood, Urine 3+ (Negative); CAUTI Indications for Culture Urological Procedure; Clarity Clear (Clear); Glucose, Urine (Dipstick) Normal (Negative); Ketone, Urine Negative (Negative); Leukocyte 25 Leu/uL (Negative); Nitrite Negative (Negative); Protein, Urine (Dipstick) 50 mg/dL (Neg-Trace); RBC/HPF Greater than 50 HPF (0-3); Specific Gravity, Urine 1.022 (1.002-1.036); Squamous Epithelial 0-3 HPF (0-3); Urobilinogen Normal mg/dL (Less than 2); pH, Urine 8.5 (5.0-9.0)
[2022-09-07 00:36] LABS: Urine Culture Reflex Yes Yes
[2022-09-07] MEDS ORDERED: Iopamidol-370 76% 500 ML MDV (1 ML CHARGE) ONE (09:08)
== END 2022-09-07 05:50 | disposition home or self-care (01) ==
LOC: ERS 15:11
DX: N93.9 Abnormal uterine and vaginal bleeding, unspecified (principal); K80.20 Calculus of gallbladder without cholecystitis without obstruction; E78.00 Pure hypercholesterolemia, unspecified; E11.9 Type 2 diabetes mellitus without complications
CPT/HCPCS: 36415; 74177; 80053; 81001; 84703; 85025; 87077; 87086; Q9967

== ENCOUNTER 2022-11-06 03:50 | Emergency (ER) | payer SELFPAY ==
[2022-11-06 05:04] LABS: #Basophils 0.1 thou/uL (0.0-0.2); #Eosinphils 0.2 thou/uL (0.0-0.7); #Monocytes 0.5 thou/uL (0.11-0.59); #Neutrophils 4.1 thou/uL (1.40-6.50); %Basophils 0.8 % (0.0-1.0); %Eosinophils 2.8 % (0.0-10.0); %Lymphocytes 34.8 % (21.0-51.0); %Monocytes 7.2 % (0.0-10.0); Hematocrit 43.6 % (36.0-47.0); Hemoglobin 14.6 g/dL (12.0-16.0); Mean Corpuscular HGB CONC 33.5 g/dL (32.0-36.0); Mean Corpuscular Hemoglobin 29.8 pg (27.0-31.0); Mean Platelet Volume 10.1 fL (7.4-10.4); Platelet Count 296 10x3/uL (130-400); RBC Distribution Width 12.7 % (11.5-14.5); White Blood Cell (WBC) Count 7.6 10x3/uL (4.8-10.8)
[2022-11-06 05:37] LABS: ALT (SGPT) 19 U/L (8-55); AST (SGOT) 16 U/L (5-34); Albumin 4.4 g/dL (3.5-5.0); Alkaline Phosphatase 83 U/L (40-110); Anion Gap 14 mmol/L (10-20); BUN (Urea Nitrogen) 18 mg/dL (7.0-18.7); Bilirubin, Total 0.3 mg/dL (0.2-1.2); Calc. Creatinine Clearance 0 mL/min (70-130); Calcium 9.4 mg/dL (7.8-10.44); Carbon Dioxide 23 mmol/L (22-29); Chloride 103 mmol/L (98-107); Estimated GFR 98; Globulin 3.6 g/dL (2.4-3.5); Glucose 109 mg/dL (70-105); Lipase 39 U/L (8-78); Potassium 3.8 mmol/L (3.5-5.1); Sodium 136 mmol/L (136-145)
[2022-11-06 05:40] LABS: Troponin I Less than 0.010 ng/mL (< 0.028)
[2022-11-06] MEDS ORDERED: Aspirin 325 MG TAB ONE (06:07)
[2022-11-06 06:51] LABS: Bacteria/HPF None Seen HPF (None Seen); Bilirubin Negative (Negative); Blood, Urine Negative (Negative); CAUTI Indications for Culture Pelvic or flank pain; Clarity Clear (Clear); Glucose, Urine (Dipstick) Normal (Negative); Ketone, Urine Negative (Negative); Leukocyte Negative Leu/uL (Negative); Nitrite Negative (Negative); Protein, Urine (Dipstick) Negative (Neg-Trace); RBC/HPF 0-3 HPF (0-3); Specific Gravity, Urine 1.019 (1.002-1.036); Squamous Epithelial 0-3 HPF (0-3); Urobilinogen Normal mg/dL (Less than 2); WBC/HPF None Seen HPF (0-3)
[2022-11-06 06:58] LABS: Pregnancy Test - Urine (BHCG) Negative (Negative); Pregu Control Background? CLEAR/WHITE (CLR/WHITE); Pregu Control Bar Appear? YES (CONTROL BAR); Specific Gravity 1.019 (1.002-1.036)
[2022-11-06 07:00] LABS: Urine Culture Reflex No No
== END 2022-11-06 06:20 | disposition home or self-care (01) ==
LOC: ERS 03:50
DX: K80.20 Calculus of gallbladder without cholecystitis without obstruction (principal); K80.80 Other cholelithiasis without obstruction; E78.00 Pure hypercholesterolemia, unspecified; E11.9 Type 2 diabetes mellitus without complications
CPT/HCPCS: 36415; 76705; 80053; 81001; 81025; 83690; 84484; 85025

== ENCOUNTER 2022-11-17 15:55 | Emergency (ER) | payer SELFPAY ==
[2022-11-17] MEDS ORDERED: Pantoprazole 40 MG VIAL ONE (16:17)
[2022-11-17] MEDS ORDERED: Ondansetron PF 4 MG/2 ML Vial ONE (16:17)
[2022-11-17] MEDS ORDERED: Ketorolac Tromethamine 30 MG/ML VIAL ONE (16:17)
[2022-11-17 16:56] LABS: #Basophils 0.1 thou/uL (0.0-0.2); #Eosinphils 0.2 thou/uL (0.0-0.7); #Monocytes 0.5 thou/uL (0.11-0.59); #Neutrophils 3.5 thou/uL (1.40-6.50); %Basophils 0.9 % (0.0-1.0); %Eosinophils 2.5 % (0.0-10.0); %Lymphocytes 37.4 % (21.0-51.0); %Monocytes 7.6 % (0.0-10.0); %Neutrophils 51.3 % (42.0-75.0); Hematocrit 42.6 % (36.0-47.0); Hemoglobin 14.5 g/dL (12.0-16.0); Mean Corpuscular Hemoglobin 29.6 pg (27.0-31.0); Mean Corpuscular Volume 86.9 fl (78.0-98.0); Mean Platelet Volume 10.1 fL (7.4-10.4); Platelet Count 298 10x3/uL (130-400); RBC Distribution Width 12.7 % (11.5-14.5); White Blood Cell (WBC) Count 6.9 10x3/uL (4.8-10.8)
[2022-11-17 16:59] LABS: Bacteria/HPF None Seen HPF (None Seen); Bilirubin Negative (Negative); Blood, Urine Trace (Negative); CAUTI Indications for Culture Pelvic or flank pain; Clarity Clear (Clear); Glucose, Urine (Dipstick) Normal (Negative); Ketone, Urine Negative (Negative); Leukocyte Negative Leu/uL (Negative); Nitrite Negative (Negative); Protein, Urine (Dipstick) Negative (Neg-Trace); RBC/HPF 0-3 HPF (0-3); Specific Gravity, Urine 1.021 (1.002-1.036); Squamous Epithelial 0-3 HPF (0-3); Urobilinogen Normal mg/dL (Less than 2); WBC/HPF 0-3 HPF (0-3); pH, Urine 5.5 (5.0-9.0)
[2022-11-17 17:05] LABS: Urine Culture Reflex No No
[2022-11-17 17:17] LABS: ALT (SGPT) 20 U/L (8-55); AST (SGOT) 20 U/L (5-34); Albumin 4.3 g/dL (3.5-5.0); Alkaline Phosphatase 88 U/L (40-110); Anion Gap 15 mmol/L (10-20); BUN (Urea Nitrogen) 18 mg/dL (7.0-18.7); Bilirubin, Total 0.3 mg/dL (0.2-1.2); Calc. Creatinine Clearance 0 mL/min (70-130); Calcium 9.9 mg/dL (7.8-10.44); Carbon Dioxide 21 mmol/L (22-29); Chloride 105 mmol/L (98-107); Estimated GFR 80; Globulin 3.9 g/dL (2.4-3.5); Glucose 106 mg/dL (70-105); Lipase 38 U/L (8-78); Potassium 4.1 mmol/L (3.5-5.1); Protein, Total 8.2 g/dL (6.0-8.3); Sodium 137 mmol/L (136-145)
[2022-11-17 17:21] LABS: Troponin I Less than 0.010 ng/mL (< 0.028)
[2022-11-17 17:24] LABS: BHCG - Serum Negative (NEGATIVE); Pregs Control Background? CLEAR/WHITE (CLR/WHITE); Pregs Control Bar Appear? YES (CONTROL BAR)
[2022-11-17] MEDS ORDERED: Morphine 4 MG/ML VIAL ONE (19:01)
== END 2022-11-17 19:39 | disposition home or self-care (01) ==
LOC: ERS 15:55
DX: K80.50 Calculus of bile duct without cholangitis or cholecystitis without obstruction (principal)
CPT/HCPCS: 36415; 76705; 80053; 81001; 83690; 84484; 84703; 85025; 93005; 96374; 96375; C9113; J1885; J2270; J2405

== ENCOUNTER 2023-01-27 23:24 | Observation (INO) | payer SELFPAY ==
[2023-01-27 23:47] LABS: #Basophils 0.1 thou/uL (0.0-0.2); #Eosinphils 0.2 thou/uL (0.0-0.7); #Neutrophils 11.2 thou/uL (1.40-6.50); %Basophils 0.4 % (0.0-1.0); %Eosinophils 1.8 % (0.0-10.0); %Lymphocytes 8.8 % (21.0-51.0); %Monocytes 7.1 % (0.0-10.0); %Neutrophils 81.6 % (42.0-75.0); Hematocrit 40.7 % (36.0-47.0); Hemoglobin 13.9 g/dL (12.0-16.0); Mean Corpuscular HGB CONC 34.2 g/dL (32.0-36.0); Mean Corpuscular Hemoglobin 29.8 pg (27.0-31.0); Mean Corpuscular Volume 87.3 fl (78.0-98.0); Platelet Count 263 10x3/uL (130-400); RBC Distribution Width 12.9 % (11.5-14.5); Red Blood Cell (RBC) Count 4.66 mill/uL (4.20-5.40); White Blood Cell (WBC) Count 13.7 10x3/uL (4.8-10.8)
[2023-01-28] MEDS ORDERED: Acetaminophen 325 MG TAB ONE
[2023-01-28] MEDS ORDERED: Famotidine/PF 20 mg/2ml Vial ONE
[2023-01-28] MEDS ORDERED: Ketorolac Tromethamine 30 MG/ML VIAL ONE
[2023-01-28 00:01] LABS: Bacteria/HPF None Seen HPF (None Seen); Bilirubin Negative (Negative); Blood, Urine Negative (Negative); Clarity Clear (Clear); Glucose, Urine (Dipstick) Normal (Negative); Ketone, Urine Negative (Negative); Leukocyte Negative Leu/uL (Negative); Nitrite Negative (Negative); Protein, Urine (Dipstick) Negative (Neg-Trace); RBC/HPF 0-3 HPF (0-3); Squamous Epithelial 0-3 HPF (0-3); Urobilinogen Normal mg/dL (Less than 2); WBC/HPF None Seen HPF (0-3)
[2023-01-28 00:04] LABS: Urine Culture Reflex Yes Yes
[2023-01-28 00:14] LABS: ALT (SGPT) 43 U/L (8-55); AST (SGOT) 34 U/L (5-34); Albumin 4.5 g/dL (3.5-5.0); Alkaline Phosphatase 100 U/L (40-110); Anion Gap 16 mmol/L (10-20); BUN (Urea Nitrogen) 15 mg/dL (7.0-18.7); Bilirubin, Total 0.2 mg/dL (0.2-1.2); Calc. Creatinine Clearance 0 mL/min (70-130); Carbon Dioxide 25 mmol/L (22-29); Chloride 98 mmol/L (98-107); Estimated GFR 91; Globulin 3.1 g/dL (2.4-3.5); Glucose 146 mg/dL (70-105); Lipase 33 U/L (8-78); Potassium 3.7 mmol/L (3.5-5.1); Protein, Total 7.6 g/dL (6.0-8.3); Sodium 135 mmol/L (136-145)
[2023-01-28 00:43] LABS: BHCG - Serum Negative (NEGATIVE); Pregs Control Background? CLEAR/WHITE (CLR/WHITE); Pregs Control Bar Appear? YES (CONTROL BAR)
[2023-01-28] MEDS ORDERED: Morphine 4 MG/ML VIAL ONE (02:12)
[2023-01-28 02:19] LABS: Troponin I Less than 0.010 ng/mL (< 0.028)
[2023-01-28] MEDS ORDERED: Morphine 4 MG/ML VIAL SLOW IVP PRN ×2 (03:20→04:40)
[2023-01-28] MEDS ORDERED: Piperacillin/Tazobactam 4.5 GM VIAL ONE (03:27)
[2023-01-28] MEDS ORDERED: Sodium Chloride 0.9% 100 ML ONE ×2 (03:29→09:53)
[2023-01-28] MEDS ORDERED: Ondansetron PF 4 MG/2 ML Vial IVP PRN (03:30)
[2023-01-28] MEDS ORDERED: Ondansetron ODT 4 MG TAB SL PRN (03:30)
[2023-01-28 04:05] VITALS: BMI 29.0
[2023-01-28] MEDS: Sodium Chloride 0.9% 1,000 ML IV SCH ×2 (04:31→10:32)
[2023-01-28] MEDS ORDERED: traMADol HCl 50 MG TAB PO PRN (05:49)
[2023-01-28] MEDS ORDERED: Ketorolac Tromethamine 30 MG/ML VIAL IVP SCH (06:00)
[2023-01-28] MEDS ORDERED: Acetaminophen 325 MG TAB PO SCH (06:00)
[2023-01-28] MEDS ORDERED: traMADol HCl 50 MG TAB PO SCH (06:00)
[2023-01-28 07:03] LABS: Prothrombin Time 13.1 sec (12.0-14.7)
[2023-01-28 07:35] LABS: ALT (SGPT) 38 U/L (8-55); AST (SGOT) 27 U/L (5-34); Albumin 3.9 g/dL (3.5-5.0); Alkaline Phosphatase 81 U/L (40-110); Bilirubin, Direct 0.3 mg/dL (0.1-0.3); Bilirubin, Total 0.6 mg/dL (0.2-1.2); Protein, Total 6.4 g/dL (6.0-8.3)
[2023-01-28] MEDS ORDERED: FLU VACC QS2023-24(6MOS UP)/PF 60 MCG/0.5 ML SYRINGE IM ONE (09:00)
[2023-01-28] MEDS ORDERED: fentaNYL PF 100 MCG/2 ML SYRINGE ONE ×2 (09:36→11:46)
[2023-01-28] MEDS ORDERED: CEFAZOLIN 2 GM VIAL ONE (09:53)
[2023-01-28] MEDS ORDERED: Lidocaine 1% PF 5 ML VIAL ONE (10:12)
[2023-01-28] MEDS ORDERED: Ondansetron PF 4 MG/2 ML Vial ONE ×2 (10:12)
[2023-01-28] MEDS ORDERED: Rocuronium Bromide 10 MG/ML (10ML VIAL) ONE (10:12)
[2023-01-28] MEDS ORDERED: PROPOFOL 200 MG/20 ML VIAL ONE (10:12)
[2023-01-28] MEDS ORDERED: Dexamethasone 20 MG/5 ML VIAL ONE (10:12)
[2023-01-28] MEDS ORDERED: PHENYLEPHRINE-NS 100 MCG/ML 10 ML SYRINGE ONE (10:12)
[2023-01-28] MEDS ORDERED: EPINEPHrine 1 MG/ML VIAL ONE (11:04)
[2023-01-28] MEDS ORDERED: Bupivacaine PF 0.5% 30 ML VIAL ONE (11:04)
[2023-01-28] MEDS ORDERED: Ibuprofen 600 MG TAB PO PRN (11:40)
[2023-01-28] MEDS ORDERED: Acetaminophen 500 MG TAB PO SCH ×3 (11:45→21:00)
[2023-01-28] MEDS ORDERED: Scopolamine 1 mg/72 hour Patch TD SCH ×2 (12:00)
[2023-01-28 19:52] VITALS: BP 98/62; TEMP 98.1
== END 2023-01-28 21:50 | disposition home or self-care (01) ==
LOC: ERS 23:24 → SJJU 01-28 03:11
PROVIDERS: ADMIT Surgery; ATTEND Surgery
PROC: 0FT44ZZ Resection of Gallbladder, Percutaneous Endoscopic Approach (ICD-10-PCS; principal; 2023-01-28)
DX: K80.12 Calculus of gallbladder with acute and chronic cholecystitis without obstruction (principal); E11.9 Type 2 diabetes mellitus without complications; Z79.84 Long term (current) use of oral hypoglycemic drugs; Z87.59 Personal history of other complications of pregnancy, childbirth and the puerperium; Z79.899 Other long term (current) drug therapy; Z90.722 Acquired absence of ovaries, bilateral
CPT/HCPCS: 36415; 76705; 80053; 80076; 81001; 83605; 83690; 84484; 84703; 85025; 85610; 85730; 87040; 88304; 96361; 96374; 96375; C1713; G0378; J0171; J1100; J1885; J2270; J2405; J2543; J2704; J3490; J7050; S0020; S0028

== ENCOUNTER 2023-04-12 16:58 | Emergency (ER) | payer SELFPAY ==
[2023-04-12 17:52] LABS: #Basophils 0.1 thou/uL (0.0-0.2); #Eosinphils 0.2 thou/uL (0.0-0.7); #Monocytes 0.7 thou/uL (0.11-0.59); #Neutrophils 4.8 thou/uL (1.40-6.50); %Basophils 0.7 % (0.0-1.0); %Eosinophils 2.6 % (0.0-10.0); %Lymphocytes 29.1 % (21.0-51.0); %Monocytes 8.5 % (0.0-10.0); %Neutrophils 58.7 % (42.0-75.0); BHCG - Serum POSITIVE (NEGATIVE); Hematocrit 42.3 % (36.0-47.0); Hemoglobin 14.6 g/dL (12.0-16.0); Mean Corpuscular HGB CONC 34.5 g/dL (32.0-36.0); Mean Corpuscular Hemoglobin 30.4 pg (27.0-31.0); Mean Corpuscular Volume 88.1 fl (78.0-98.0); Platelet Count 268 10x3/uL (130-400); Pregs Control Background? CLEAR/WHITE (CLR/WHITE); Pregs Control Bar Appear? YES (CONTROL BAR); White Blood Cell (WBC) Count 8.1 10x3/uL (4.8-10.8)
[2023-04-12 18:17] LABS: ALT (SGPT) 47 U/L (8-55); AST (SGOT) 26 U/L (5-34); Albumin 4.3 g/dL (3.5-5.0); Alkaline Phosphatase 93 U/L (40-110); Anion Gap 16 mmol/L (10-20); BUN (Urea Nitrogen) 11 mg/dL (7.0-18.7); Bilirubin, Total 0.3 mg/dL (0.2-1.2); Calc. Creatinine Clearance 0 mL/min (70-130); Calcium 9.8 mg/dL (7.8-10.44); Carbon Dioxide 22 mmol/L (22-29); Chloride 102 mmol/L (98-107); Estimated GFR 88; Globulin 3.5 g/dL (2.4-3.5); Glucose 179 mg/dL (70-105); Lipase 39 U/L (8-78); Potassium 4.1 mmol/L (3.5-5.1); Protein, Total 7.8 g/dL (6.0-8.3); Sodium 136 mmol/L (136-145)
[2023-04-12 21:57] LABS: Bacteria/HPF None Seen HPF (None Seen); Bilirubin Negative (Negative); Blood, Urine 2+ (Negative); CAUTI Indications for Culture Pelvic or flank pain; Clarity Clear (Clear); Glucose, Urine (Dipstick) Normal (Negative); Ketone, Urine Negative (Negative); Leukocyte 500 Leu/uL (Negative); Nitrite Negative (Negative); Protein, Urine (Dipstick) Negative (Neg-Trace); Specific Gravity, Urine 1.012 (1.002-1.036); Squamous Epithelial 0-3 HPF (0-3); Urine Culture Reflex No No; Urobilinogen Normal mg/dL (Less than 2); WBC/HPF 0-3 HPF (0-3)
[2023-04-12] MEDS ORDERED: Fluconazole 100 MG TAB ONE (22:50)
== END 2023-04-12 22:57 | disposition home or self-care (01) ==
LOC: ERS 16:58
DX: O02.1 Missed abortion (principal); B37.31 Acute candidiasis of vulva and vagina
CPT/HCPCS: 36415; 76856; 80053; 81001; 83605; 83690; 84702; 84703; 85025; 86850; 86900; 86901; 87480; 87510; 87660